=== PATIENT | female | born 1990 | race Caucasian/White ===

== ENCOUNTER → 2016-12-31 | Outpatient (CLI) | payer BC ==
[~2016-12-31] MED LIST: ANTICRE6; PAIN MEDS
[2016-12-31 16:19] LABS: URINE APPEARANCE CLEAR (CLEAR); URINE BILIRUBIN NEG (NEG); URINE COLOR YELLOW; URINE NITRITE NEG (NEG); URINE SPECIFIC GRAVITY 1.016 (1.000-1.030); UROBILINOGEN NEG (NEG)
[2016-12-31 16:20] LABS: MANUAL MICROSCOPIC REQUIRED? NO; REVIEW REQ? NO
== END | disposition home or self-care (01) ==
LOC: C.LABSPEC 15:35
PROVIDERS: ATTEND Obstetrics & Gynecology
DX: Z34.90 Encounter for supervision of normal pregnancy, unspecified, unspecified trimester (principal)

== ENCOUNTER → 2017-01-07 | Outpatient (CLI) | payer BC ==
[2017-01-10 02:01] LABS: CHLAMYDIA TRACH RNA*** NOT DETECTED (NOT DETECTED); GC (NEIS GONORRHOEAE)RNA** NOT DETECTED (NOT DETECTED)
== END | disposition home or self-care (01) ==
LOC: C.LABSPEC 17:25
PROVIDERS: ATTEND Obstetrics & Gynecology
DX: Z34.90 Encounter for supervision of normal pregnancy, unspecified, unspecified trimester (principal)

== ENCOUNTER → 2017-01-07 | Outpatient (CLI) | payer BC ==
[2017-01-07 16:38] LABS: BASO % 0.2 %; BASO ABS # 0.01 K/uL (0-0.2); COMPLETE YES; EOS % 1.4 %; HEMATOCRIT 34.7 % (37-47); IG% 0.2 %; LYMPH % 21.9 %; LYMPH ABS # 1.37 K/uL (1.2-3.4); MEAN CELL VOLUME 85.3 fL (80-100); MEAN CORPUSCULAR HEMOGLOBIN 29.5 pg (25-34); MEAN CORPUSCULAR HGB CONC 34.6 g/dl (32-36); MEAN PLATELET VOLUME 10.4 fL (7.4-10.4); MONO % 7.5 %; NEUT % 68.8 %; PLATELET COUNT 257 K/uL (130-400); RED BLOOD COUNT 4.07 M/uL (4.2-5.4); WHITE BLOOD COUNT 6.26 K/uL (4.8-10.8)
== END | disposition home or self-care (01) ==
LOC: C.LAB1850 15:39
PROVIDERS: ATTEND Obstetrics & Gynecology
DX: Z34.90 Encounter for supervision of normal pregnancy, unspecified, unspecified trimester (principal)

== ENCOUNTER → 2017-05-01 | Outpatient (CLI) | payer BC ==
[2017-05-01 12:19] LABS: URINE APPEARANCE CLEAR (CLEAR); URINE BILIRUBIN NEG (NEG); URINE COLOR YELLOW; URINE NITRITE NEG (NEG); URINE PH 7.5 (4.5-7.5); URINE SPECIFIC GRAVITY 1.013 (1.000-1.030); UROBILINOGEN NEG (NEG)
[2017-05-01 12:21] LABS: MANUAL MICROSCOPIC REQUIRED? NO; REVIEW REQ? NO
== END | disposition home or self-care (01) ==
LOC: C.LABSPEC 11:38
PROVIDERS: ATTEND Obstetrics & Gynecology
DX: O09.92 Supervision of high risk pregnancy, unspecified, second trimester (principal); Z3A.00 Weeks of gestation of pregnancy not specified

== ENCOUNTER → 2017-05-19 | Outpatient (CLI) | payer BC ==
[2017-05-19 12:22] LABS: HEMATOCRIT 30.6 % (37-47)
[2017-05-19 13:27] LABS: GTGD 50 Grams
== END | disposition home or self-care (01) ==
LOC: C.LAB1850 09:38
PROVIDERS: ATTEND Obstetrics & Gynecology
DX: O09.92 Supervision of high risk pregnancy, unspecified, second trimester (principal); Z3A.00 Weeks of gestation of pregnancy not specified

== ENCOUNTER → 2017-06-18 | Outpatient (CLI) | payer BC ==
[~2017-06-18] MED LIST changes: +PRENTAB26 PO
== END | disposition home or self-care (01) ==
LOC: C.LABSPEC 13:17
PROVIDERS: ATTEND Obstetrics & Gynecology
DX: O09.93 Supervision of high risk pregnancy, unspecified, third trimester (principal); Z3A.00 Weeks of gestation of pregnancy not specified

== ENCOUNTER 2017-06-28 19:08 | Outpatient (CLI) | payer BC ==
[~2017-06-28] VITALS: Ht 170.2 cm; Wt 86.5 kg
[~2017-06-28 19:08] MED LIST changes: -PRENTAB26 PO
[2017-06-28 19:53] VITALS: Ht 170.2 cm; Wt 86.5 kg
[2017-06-28] MEDS ORDERED: PRENTAB26 PO (19:54)
--- NOTE | 2017-07-02 09:26 | EDITING REQUIRED CODING QUERY ---
VALENCIA BULB Nursing notes indicate that a valencia bulb was attempted but unsuccessful on 06/28/17. Please provide a description of the attempted procedure for coding purposes: VALENCIA BULB ATTEMPT: A valencia bulb was placed through the cervix but immediately fell back out when insufflated. The balloon was removed and the patient was monitored prior to discharge home. Thank you for your assistance, Elizabeth Sahu - Wall Covering Contractor
== END 2017-06-28 21:35 | disposition home or self-care (01) ==
LOC: C.OPB 19:08 → C.LD 19:08 → C.OPB 21:35
PROVIDERS: ATTEND Obstetrics & Gynecology
DX: O36.0130 Maternal care for anti-D [Rh] antibodies, third trimester, not applicable or unspecified (principal); Z3A.37 37 weeks gestation of pregnancy

== ENCOUNTER 2017-06-29 07:43 | Inpatient (IN) | payer BC ==
[~2017-06-29] VITALS: Ht 170.2 cm; Wt 77.1 kg
[~2017-06-29 07:43] MED LIST changes: +PRENTAB26 PO
[2017-06-29] MEDS ORDERED: LACTATED RINGER'S 1000ML 500 ML IV PRN ×2 (07:49→14:14)
[2017-06-29] MEDS ORDERED: LACTATED RINGER'S 1000ML 1,000 ML IV PRN (07:49)
[2017-06-29] MEDS ORDERED: OXYTOCIN 30 UNITS/500ML NSS IV PRN ×2 (08:00→16:30)
[2017-06-29 08:30] LABS: HEMATOCRIT 29.1 % (37-47); HEMOGLOBIN 9.8 g/dL (12.0-16.0); MEAN CELL VOLUME 85.1 fL (80-100); MEAN CORPUSCULAR HEMOGLOBIN 28.7 pg (25-34); MEAN CORPUSCULAR HGB CONC 33.7 g/dl (32-36); MEAN PLATELET VOLUME 9.9 fL (7.4-10.4); PLATELET COUNT 270 K/uL (130-400); RED CELL DISTRIBUTION WIDTH CV 13.5 % (11.5-14.5); RED CELL DISTRIBUTION WIDTH SD 42.1 fL (36.4-46.3); WHITE BLOOD COUNT 8.94 K/uL (4.8-10.8)
[2017-06-29] MEDS: LACTATED RINGER'S 1000ML 1,000 ML IV SCH ×2 (08:46→14:22)
[2017-06-29 08:58] VITALS: Ht 170.2 cm; Wt 77.1 kg
--- NOTE | 2017-06-29 09:14 | Medical Student: [facility] ---
Med Student History & Physical Date of Service Jun 29, 2017. Chief Complaint Induction for Rh sensitization History of Present Illness Source: patient, spouse Laura Evans is a 27 yo white female with ELIEZER of 07/18/2017 as estimated by 13 week ultrasound on 01/12/2017, who is 37-2 gestation, who is admitted for induction for Rh sensitized, and has history of post- depression. 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 During this she has been [place] [facility] [place] Dopplers of the middle cerebral artery. Dopplers less than 1.5 MOM. She has had 2 previous induced vaginal deliveries at term with no negative sequelae. During her current she reports movement and small amount of mucus-like discharge that was slightly blood tinged after cervix exams on 2017 and 06/28/2017. NSTs reactive on 06/12, 06/18 and 06/24. She denies any significant contractions, leakage of fluid, AMA, GDM, PET, and anomalies. She reports influenza vaccine (04/07/2017), TDAP vaccine (05/01/2017), and rubella immune. She is GBS negative and had negative STI screening (VDRL/RPR immune, nonreactive treponemal, negative for HBsAg/HIV/chlamydia/gonorrhea). Her initial labs showed 34.7% HCT, 12.0 g/dl HGB, MCV of 85.3, and platelets if 257k. Her 24-28 week labs (05/19) showed HCT of 30.6%, 10.0g/dl HGB , and glucose of 128. She declined the QUAD screen. She traveled to [facility] from 04/15-04/26/2017 Allergies: latex (hives), catgut sutures (hives,"Vicryl is okay") OB History G1 was a spontaneous (10/2012). G2 was an induction for Rh sensitization with at 37-5 with epidural (female "Una", 09/25/2014). G3 was an induction for Rh sensitization with at 37-5 weeks (male "Jaun" 08/16). PLANT BREEDER History Menarche at 11 yo, with regular 28d menstrual periods with LMP x 10/22/2016, UTD on pap smears with no history of abnormal pap. Sexual history: onset at 20 yo, 1 lifetime male partner, no history of STIs. Denies history of obstetrics/gynecology nurse surgery or family history of obstetrics/gynecology nurse cancer. Reports annual healthy visits/screenings UTD. Past Medical History depression, which she reports taking sertraline 75mg daily with taper before third trimester of current . She was on 50mg daily, but increased to 75mg on 02/03/[address] Morocho. She wishes to start sertraline again after delivery (25mg script given to patient at 06/26/2016 out patient visit per Dr. Lechuga). History of blood transfusion at 11 yo secondary to surgery. History of chicken pox. Past Surgical History VATS with chest tube for pneumonia/empyema in 2002 Family History patient denies, all parents alive and well Social History no tobacco/alcohol/elicit drugs during current Smoking Status: Never Smoker Smokeless Tobacco Use: No Alcohol Use: none Drug Use: none Marital Status: Housing status: lives with family Occupational Status: other (homemaker) Allergies Coded Allergies: Latex1 -Allergic Contact Dermititis (Verified Allergy, Mild, Rash, 06/29/17) Uncoded Allergies: catgut sutures (Allergy, Severe, swelling and weston, 06/28/17) Home Medications Multivit/Min/Iron/Fol Ac/Pren ( Vitamin), 1 TAB PO DAILY Review of Systems Constitutional: No fever, No chills Eyes: No worsening of vision, No diplopia ENT: No hearing loss, No trouble swallowing Respiratory: No cough, No shortness of breath Cardiovascular: No chest pain, No edema, No palpitations Abdomen: + diarrhea, + problem reported (heartburn), No nausea, No vomiting, No constipation Musculoskeletal: + swelling (hands/feet), No calf pain Genitourinary - Female: + urinary frequency, + , No dysuria, No urinary incontinence, No hematuria, No rash, No vaginal bleeding Neurologic: No memory loss, No numbness/tingling Integumentary: No rash, No new/changing skin lesions Allergic / Immunologic: + food allergies, No hives Physical Exam General Appearance: WD/WN, no apparent distress Head: normocephalic, atraumatic Eyes: normal inspection, sclerae normal ENT: hearing grossly normal Neck: supple Respiratory/Chest: lungs clear, normal breath sounds Cardiovascular: regular rate, rhythm, no edema Abdomen / GI: + pertinent finding (gravid, fundal height: term, +FHTs, vertex, no palpable contractions, EFW 7lbs ) Genitourinary - Female: + pertinent finding (dilation: 2-3cm, effacement: 50, station: -2/3) Back: no muscle spasm, normal range of motion Extremities: no calf tenderness (no deep calf tenderness), no pedal edema, normal range of motion, non-tender Neurologic/Psych: alert, normal mood/affect, normal reflexes (2+ deep tendon reflexes) Skin: normal color, no rash Lymphatic: no adenopathy Laboratory Results 06/29/17 08:10 Test 06/29/17 08:10 Red Blood Count 3.42 M/uL (4.2-5.4) Mean Corpuscular Volume 85.1 fL (80-100) Mean Corpuscular Hemoglobin 28.7 pg (25-34) Mean Corpuscular Hemoglobin Concent 33.7 g/dl (32-36) RDW Standard Deviation 42.1 fL (36.4-46.3) RDW Coefficient of Variation 13.5 % (11.5-14.5) Mean Platelet Volume 9.9 fL (7.4-10.4) Assessment and Plan Laura Evans is a 27 yo white female admitted to L&D for an induction of labor at 37-2 weeks gestation for her history of Rh sensitization. Plan: 1) monitoring - Monitor heart rate 2) Start pitocin and rupture membranes - Rate of 1ml/min increase by 2 every 30 minutes, until patient having contractions every 2-3 minutes that last 60-90 seconds. 3) Plan for repeat vaginal delivery with epidural (when requested by patient).
[2017-06-29] MEDS ORDERED: BUPIVACAINE 0.25% 30 ML VIAL ONE (14:14)
[2017-06-29] MEDS ORDERED: NALOXONE HCL INJ 1 MG in SODIUM CHLORIDE 0.9% 1000ML 1,000 ML IV PRN (14:14)
[2017-06-29] MEDS ORDERED: NALOXONE HCL INJ 0.4 MG/1 ML VIAL/CARP IV PRN (14:15)
[2017-06-29] MEDS ORDERED: EpHEDrine SULFATE INJ 50 MG/ML AMP IV PRN (14:15)
[2017-06-29] MEDS ORDERED: FENTANYL 2MCG/ML ROPIV 1.25MG/ML 100ML BAG EPI PRN (14:15)
[2017-06-29] MEDS ORDERED: ONDANSETRON INJ 2 MG/ML 2 ML VIAL IV PRN (14:15)
[2017-06-29] MEDS ORDERED: EpHEDrine SULFATE INJ 50 MG/ML AMP ONE (14:15)
[2017-06-29] MEDS ORDERED: DiphenhydrAMINE HCL 50 MG/ML VIAL IV PRN (14:15)
[2017-06-29] MEDS ORDERED: METOCLOPRAMIDE HCL INJ 20 MG in SODIUM CHLORIDE 0.9% 50ML 50 ML IV PRN (14:15)
[2017-06-29] MEDS ORDERED: FENTANYL 2MCG/ML ROPIV 1.25MG/ML 100ML BAG EPI ONE (14:15)
[2017-06-29] MEDS ORDERED: PROMETHAZINE HCL INJ 25 MG in SODIUM CHLORIDE 0.9% 50ML 50 ML IV PRN (14:15)
[2017-06-29] MEDS ORDERED: NALBUPHINE HCL INJ 10 MG/ML AMP IV PRN (14:15)
[2017-06-29] MEDS ORDERED: FENTANYL CITRATE INJ 50 MCG/1 ML 2 ML VIAL ONE (14:16)
[2017-06-29] MEDS ORDERED: SUPERCREAM 0.870 % 15GM JAR EXT PRN (16:30)
[2017-06-29] MEDS ORDERED: ACETAMINOPHEN/CODEINE 300/30MG TAB PO PRN ×2 (16:30)
[2017-06-29] MEDS ORDERED: BENZOCAINE 20% AER SPR 82.5 GM CAN EXT PRN (16:30)
[2017-06-29] MEDS ORDERED: ACETAMINOPHEN 325 MG TAB PO PRN (16:30)
[2017-06-29] MEDS ORDERED: HYDROCORTISONE ACETATE 25 MG SUPP PR PRN (16:30)
[2017-06-29] MEDS ORDERED: LANOLIN OINT EXT PRN (16:30)
--- NOTE | 2017-06-29 16:36 | Medical Student: [facility] ---
Medical Student Delivery Note Юлия Evans with Rh sensitization had a normal spontaneous vaginal delivery, after pitocin induction and manual ROM, of female infant in the ROSALIA position over intact perineum with total of 14cc epidural anesthesia. No meconium stained fluid or nuchal cord noted. Spontaneous delivery of placenta with 3-vessel cord. No laceration, only few (2-3) small brush melo, which did not require any sutures of posterior vaginal wall. Normal amount of blood loss (~300cc). Cord blood specimen and cord blood gas sent to laboratory for mother's history of Rh sensitization and baby's Rh+ status.
[2017-06-29] MEDS: IBUPROFEN 600 MG TAB PO PRN ×2 (16:58→20:33)
[2017-06-29] MEDS ORDERED: SERTRALINE HCL 50 MG TAB PO ONE (17:30)
--- NOTE | 2017-06-29 18:19 | Anesthesia Procedure Note ---
Anesthesia Epidural Removal Nt Date & Time Jun 29, 2017 at 18:19 Vital Signs Pain Intensity: 2.0 Notes Mental Status: alert / awake / arousable, participated in evaluation Nausea / Vomiting: adequately controlled Pain: adequately controlled Airway Patency, RR, SpO2: stable & adequate BP & HR: stable & adequate Hydration State: stable & adequate Neuraxial Anesthesia: was administered, sensory block is resolving Anesthetic Complications: no major complications apparent, pt satisfied with anesthetic care Epidural: removed without complications, with tip intact
[2017-06-29 19:15] VITALS: BP 115/69; PULSE 97; TEMP 36.4
--- NOTE | 2017-06-29 22:36 | DELIVERY SUMMARY ---
DATE OF OPERATION: 06/29/2017 FINDINGS: Viable female with Apgars of 8 and 9. Baby delivered spontaneously over intact perineum. Cord gases, cord blood samples obtained. Placenta delivered spontaneously. Inspection of the perineum showed no lacerations. Estimated blood loss was 300 mL. LABOR NOTE: The patient is a 27-year-old 4, para 2, with an EDC of 07/18/2017 by first trimester ultrasound at 37+ weeks gestational age, who was admitted for induction for isoimmunization, anti D. 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 She has been followed at [facility] with weekly MCA Dopplers in the third trimester. There was a mild elevation in the third trimester but not indicative of a severe anemia. The patient had cell-free DNA testing which indicated the baby is Rh positive. The patient has been followed with biweekly NSTs that have been reassuring. Laboratory values for the showed blood type of A negative, antibody positive for anti D and anti C, rubella immune, hepatitis B negative. She declined a quad screen. She had a normal 1 hour Glucola at 28 weeks and a negative third trimester beta strep culture. Upon admission, the patient was 2 to 3 cm dilated, 50% effaced and -2 station. Pitocin was initiated per induction protocol, artificial rupture of membranes for clear fluid. Over the next 6 hours, the patient began to contract in a regular fashion and became uncomfortable. Anesthesia was consulted and an epidural was placed. Following placement of the epidural, the patient progressed to full dilatation and began her second stage. She pushed for approximately 5 minutes, delivering a viable female . Cord was clamped and cut. Cord gases, cord blood samples obtained. Placenta was delivered spontaneously. Inspection of the perineum showed an intact perineum with no lacerations. Estimated blood loss 300 mL. Sponge and needle count was correct. I attest to the content of the Intraoperative Record and any orders documented therein. Any exception s are noted below.
[2017-06-29 23:51] VITALS: BP 114/72; PULSE 81; TEMP 36.7
[2017-06-30] MEDS: IBUPROFEN 600 MG TAB PO PRN ×4 (02:23→21:25)
[2017-06-30 04:01] VITALS: BP 123/74; PULSE 93; TEMP 36.9
--- NOTE | 2017-06-30 06:12 | Discharge Instructions ---
Discharge Instructions Date of Service Jun 30, 2017. Admission Reason for Admission: Induction Discharge Discharge Diagnosis / Problem: vaginal delivery Discharge Goals Goal(s): Routine recovery after delivery Medications Continue Dispensed Medications: supercream, dermaplast, tucks Activity Recommendations Activity Limitations: per Instructions/Follow-up section . Instructions / Follow-Up Instructions / Follow-Up ACTIVITY RECOMMENDATIONS: * Gradual return to full activity over the next 2-3 weeks. * No lifting - nothing heavier than baby over the next 2-3 weeks. * Do not engage in vigorous exercise, sexual activity or sports until cleared by your physician. * Do not drive or operate any motorized equipment until cleared by your physician. * You may shower/bathe daily. MEDICATIONS: For discomfort or pain, you may use Acetaminophen (Tylenol), Ibuprofen (Advil), or Naproxen (Aleve) following the package directions. For constipation you may use Colace following the package directions. BREAST CARE: If you are not breast feeding: * Wear a supportive bra 24 hours a day for one to two weeks. * Avoid stimulating your breasts and nipples as much as possible during the first few weeks after delivery. * When taking a shower, have the warm water hit your back, not breasts. * When your breasts feel full, apply ice packs. Usually three to four times a day helps ease the discomfort. * Take a mild pain medication (Tylenol / Motrin) when you are uncomfortable. If breast feeding: * Use breast milk to lubricate nipples. Lansinoh cream may be used for sore nipples. You do not need to remove cream prior to breast feeding. If using a different brand of cream, check the label for directions regarding removal of cream prior to nursing. * Wear a supportive bra. * If having problems with breasts or breast feeding, call a sql consultant or your health care provider. EPISIOTOMY CARE: After delivery, if you have an episiotomy (stitches), the following steps will ease discomfort and aid healing. * For the first 24 hours after delivery, place ice packs next to your episiotomy to help reduce swelling. * After the first 24 hour-period, sitz baths, either portable or in the tub, are suggested. A shower with a shower arm sprayed over the episiotomy may be comforting. * Yessica care should be done after each voiding and bowel movement. Squirt warm water from a plastic bottle over the perineum (region of the body between the anus and urinary opening) and pat dry. * Use Dermoplast to ease discomfort. Shake container. [place] directly over the episiotomy. Place a Tucks on a clean sanitary pad next to your episiotomy. SPECIAL CARE INSTRUCTIONS: When you are discharged from the hospital, it is important for you to follow the instructions listed below: * During the first week at home, you should be able to care for yourself and your baby. In addition, the usual light household activities are encouraged. * Limit your activities to the way you feel. Do not try to clean the house or move furniture. Be sensible. * If you actively engage in sports and have done so up until the time of your delivery, you may resume these activities as soon as you feel able. This may take up to one month or even longer. Use good judgment. * Continue to take your vitamins for at least six weeks after the of your baby. * Your diet need not be limited unless you were on a special diet before your delivery. Breast-feeding mothers need around 2500 calories per day and at least 64-80 ounces of fluid per day (8 to 10 glasses). * You should eat foods from the four major food groups. Crash diets or fad diets are to be avoided. Eating lean meats, fresh fruits and vegetables, low-fat dairy products, high fiber foods and a regular exercise program, will help you get back to your pre- weight without putting your health at risk. * Constipation is sometimes a problem after delivery. Take a mild laxative as needed. If breast feeding, Milk of Magnesia is acceptable to use. You may use a suppository or Fleets enema if no episiotomy. * A daily shower or tub bath is suggested. Be sure to thoroughly and gently dry the perineum. * A bloody vaginal discharge will usually continue until around four weeks post . A small amount of bleeding may continue for as long as six weeks. Vaginal discharge changes from the bright red bleeding after delivery to pink then brownish and finally yellowish-pink before becoming white and disappearing. * Bleeding may increase with activity. Your first period may come in 4-8 weeks. If you are breast feeding, your period may be delayed even longer. * [place] (sex) can begin whenever both you and your partner feel comfortable and do not have any form of genital infection. It is recommended that you wait at least six weeks for internal and external healing to occur. If you have questions, please talk to your health care practitioner. A condom should be used to prevent infection and . * Foreplay, gentle intercourse and lubrication is very important the first several times to prevent pain. A water-based lubricant such as K-Y jelly or Astroglide may be used. * If you have RH negative blood and your baby is RH positive, you will receive RHOGAM by injection prior to discharge. The nurse will give you a card to keep with you that has the date and place that you received RHOGAM after delivery. * During your care, you had a Rubella screen done to check for the presence of rubella antibodies in your blood. If your test was negative, you will receive a Rubella vaccine prior to discharge. This vaccine may cause a fever, soreness at the injection site and flu-like symptoms. If these symptoms persist, notify your health care practitioner. is not advised for one month after a Rubella vaccine. * Verbalizes understanding of car seat law as reviewed with patient nursing. * Car Seat hand-out given and reviewed with patient by nursing. * Shaken baby information reviewed with patient by nursing. Call you doctor if: * Heavy bleeding (saturating several pads an hour) or passing clots the size of your fist. * A fever >101 degrees F (38.3 degrees C) on two occasions four hours apart and /or chills. * Unusual pain in the pelvic or vaginal areas. * "Baby Blues" lasting longer than two weeks. If you have any questions or concerns, call your health care practitioner at . FOLLOW UP VISIT: * Please call the office at to schedule a 6 week examination. It is important you keep this appointment. It is important for you to make arrangements for either yearly or twice yearly check-ups thereafter. Current Hospital Diet Patient's current hospital diet: Regular OB Diet Discharge Diet Recommended Diet: Regular OB Diet Pending Studies Studies pending at discharge: no Medical Emergencies . Who to Call and When: Medical Emergencies: If at any time you feel your situation is an emergency, please call 911 immediately. . Non-Emergent Contact Non-Emergency issues call your: Inspector Penetrant . . "Provider Documentation" section prepared by Stephon Heard. . VTE Core Measure Inpt VTE Proph given/why not?: Treatment not indicated
--- NOTE | 2017-06-30 06:21 | OB/GYN Progress Note ---
CONSTRUCTION REP Progress Note Date of Service Jun 30, 2017. Subjective conversation w/ patient, physical exam, chart review, lab review Ambulation: ambulating normally Voiding: no voiding problems Passing Gas: Yes Diet Tolerance: Regular Diet Lochia: Moderate Feeding Type: Breast Feeding Pain: well controlled Review of Systems Constitutional: No fever, No chills Respiratory: No cough, No shortness of breath Cardiac: No chest pain, No palpitations Abdomen: No pain, No nausea, No vomiting Female : No dysuria Objective Vital Signs Date Time Temp Pulse Resp B/P (MAP) Pulse Ox O2 Delivery O2 Flow Rate FiO2 06/30/17 04:01 36.9 93 16 123/74 (90) Room Air 06/29/17 23:53 Room Air 06/29/17 23:51 36.7 81 18 114/72 (86) Room Air 06/29/17 19:15 Room Air 06/29/17 19:15 36.4 97 20 115/69 (84) Room Air Physical Exam General Appearance: WELL-APPEARING, WD/WN, NO APPARENT DISTRESS Respiratory/Chest: lungs clear, normal breath sounds Cardiovascular: regular rate, rhythm, no murmur Abdomen: soft, no organomegaly Fundus: Firm Extremities: normal inspection, no pedal edema, no calf tenderness Laboratory Results Last 24 Hours Test 06/29/17 08:10 06/30/17 06:10 White Blood Count 8.94 K/uL Red Blood Count 3.42 M/uL Hemoglobin 9.8 g/dL Hematocrit 29.1 % Mean Corpuscular Volume 85.1 fL Mean Corpuscular Hemoglobin 28.7 pg Mean Corpuscular Hemoglobin Concent 33.7 g/dl RDW Standard Deviation 42.1 fL RDW Coefficient of Variation 13.5 % Platelet Count 270 K/uL Mean Platelet Volume 9.9 fL Assessment and Plan Post- Day Number: 1 Continue Routine Care: 27 f now 3 PPD1, GBS-/A-/RI. Vitals reviewed, WNL. Hgb 9.8 at admission, pending today. No signs or sx of anemia. Plan; 1. Post depression-patient has a PMH with previous pregnancies. Continue Sertraline 25mg daily. Follow up with patients mood. 2. Recovery from vaginal delivery- Continue pp care; ambulate, control pain, monitor lochia, support Resident Physician Supervision Note: I interviewed and examined the patient. Discussed with Dr. Heard and agree with findings and plan as documented in the note. Any exceptions or clarifications are listed here: Baby under the bili lights Documented By: Julio Cesar Lechuga
[2017-06-30 06:50] LABS: HEMATOCRIT 28.1 % (37-47); HEMOGLOBIN 9.4 g/dL (12.0-16.0)
--- NOTE | 2017-06-30 06:59 | Medical Student: [facility] ---
Med Student [employer] Progress Nt Date of Service Jun 30, 2017. Subjective conversation w/ patient Ambulation: ambulating normally Voiding: no voiding problems Passing Gas: Yes Diet Tolerance: Regular Diet Lochia: Moderate Feeding Type: Breast Feeding Pain: well controlled on motrin Notes: Laura Evans, who is isoimmunized (anti-C and anti-D antibodies), is a 27 yo female now 3 who had a vaginal delivery on 06/29/2017 at 1606. She is day 1. She is GBS negative, blood type A-, rubella immune. Her baby is A+ and C antigen +. Today patient states she is doing well, with only slight lower abdominal pain which is well controlled on Motrin. She is eating a normal diet. She has voided and passed gas, but has not had a bowel movement since delivery. She describes her lochia as moderate, where she changes her pad every few hours when she voids, but the pad is not soaked through. She is breast feeding, which is going well. She also notes some slight swelling in her hands and feet. She reports taking her 25mg sertraline last night, and notes her mood has been good. She denies nausea, vomiting, diarrhea, chest pain , shortness of breath, calf tenderness. Review of Systems Constitutional: + problem reported (slight swelling in hands/feet), No fever Respiratory: No shortness of breath Cardiac: No chest pain Abdomen: + pain (controlled on motrin), No nausea, No vomiting, No diarrhea Female : + problem reported (moderate lochia (pad change every few hours)), No dysuria, No incontinence Objective Vital Signs Date Time Temp Pulse Resp B/P (MAP) Pulse Ox O2 Delivery O2 Flow Rate FiO2 06/30/17 04:01 36.9 93 16 123/74 (90) Room Air 06/29/17 23:53 Room Air 06/29/17 23:51 36.7 81 18 114/72 (86) Room Air 06/29/17 19:15 Room Air 06/29/17 19:15 36.4 97 20 115/69 (84) Room Air Physical Exam General Appearance: WELL-APPEARING, WD/WN, NO APPARENT DISTRESS Respiratory/Chest: normal breath sounds Cardiovascular: regular rate, rhythm Abdomen: non tender, soft, + pertinent finding (uterus palpated just under umbilicus ) Extremities: normal range of motion, non-tender, no calf tenderness Laboratory Results Last 24 Hours Test 06/29/17 08:10 06/30/17 06:10 White Blood Count 8.94 K/uL Red Blood Count 3.42 M/uL Hemoglobin 9.8 g/dL Hematocrit 29.1 % Mean Corpuscular Volume 85.1 fL Mean Corpuscular Hemoglobin 28.7 pg Mean Corpuscular Hemoglobin Concent 33.7 g/dl RDW Standard Deviation 42.1 fL RDW Coefficient of Variation 13.5 % Platelet Count 270 K/uL Mean Platelet Volume 9.9 fL Assessment and Plan Post- Day Number: 1 Continue Routine Care: Laura Evans is a 27 yo female with PMHx of isoimmunization (anti-C and anti-D) who is now 3, day 1 and doing well. Her vital signs are stable. Her Hgb was 9.8 yesterday with today's Hgb pending. Plan: 1) Continue care of encouraging ambulation, breast feeding support, and pain control 2) Plan to discharge tomorrow. 3) Monitor for depression, with history after 2 previous births. Continue taking 25mg sertraline. Patient confirms she has a prescription for 25mg to take after discharge.
[2017-06-30 07:59] VITALS: BP 116/76; PULSE 84; TEMP 36.6
[2017-06-30] MEDS: SERTRALINE HCL 50 MG TAB PO SCH (08:31)
[2017-06-30] MEDS: PRENATAL VITAMIN TAB PO SCH (08:31)
[2017-06-30] MEDS: FERROUS SULFATE 325 MG TAB PO SCH (08:31)
[2017-06-30 11:30] VITALS: BP 124/76; PULSE 83; TEMP 36.7
[2017-06-30 15:54] VITALS: BP 119/76; PULSE 80; TEMP 36.6
[2017-06-30 23:25] VITALS: BP 117/75; PULSE 74; TEMP 36.9
--- NOTE | 2017-07-01 06:33 | Progress Note ---
Subjective Jul 01, 2017. Subjective conversation w/ patient, physical exam Ambulation: ambulating normally Voiding: no voiding problems Diet Tolerance: Regular Diet Lochia: Small Feeding Type: Breast Feeding Pain: denies Objective Vital Signs Date Time Temp Pulse Resp B/P (MAP) Pulse Ox O2 Delivery O2 Flow Rate FiO2 06/30/17 23:25 36.9 74 18 117/75 (89) Room Air 06/30/17 23:25 Room Air 06/30/17 16:50 Room Air 06/30/17 15:54 36.6 80 18 119/76 (90) Room Air 06/30/17 11:30 36.7 83 18 124/76 (92) Room Air 06/30/17 09:35 Room Air 06/30/17 07:59 36.6 84 20 116/76 (89) Room Air Physical Exam General Appearance: WELL-APPEARING, WD/WN, NO APPARENT DISTRESS Respiratory/Chest: lungs clear Cardiovascular: regular rate, rhythm Abdomen: non tender, soft Fundus: Firm, Relation to Umbilicus (2 down) Extremities: non-tender Assessment and Plan Post- Day#: 2 Continue Routine Care: stable, routine care. ready for d/c home. f/u 6 wks pp check. instructions reviewed. plans to cont on her zoloft with h/o pp depression. already has script.
[2017-07-01] MEDS ORDERED: BISACODYL 10 MG SUPP PR PRN (07:00)
[2017-07-01] MEDS: SERTRALINE HCL 50 MG TAB PO SCH (07:49)
[2017-07-01] MEDS: FERROUS SULFATE 325 MG TAB PO SCH (07:49)
[2017-07-01] MEDS: PRENATAL VITAMIN TAB PO SCH (07:49)
[2017-07-01 07:55] VITALS: BP 118/77; PULSE 86; TEMP 36.7
[2017-07-01 16:16] VITALS: BP_DIAS 77; PULSE 86; TEMP 36.7
== END 2017-07-01 16:18 | disposition home or self-care (01) | DRG 775 ==
LOC: C.LD 07:43 → C.OBG 18:55
PROVIDERS: ADMIT Obstetrics & Gynecology; ATTEND Obstetrics & Gynecology
PROC: 10E0XZZ Delivery of Products of Conception, External Approach (ICD-10-PCS; principal; 2017-06-29)
DX: O80 Encounter for full-term uncomplicated delivery (principal); Z37.0 Single live birth; Z3A.37 37 weeks gestation of pregnancy

== ENCOUNTER → 2017-09-15 | Outpatient (CLI) | payer BC ==
[~2017-09-15] MED LIST changes: -ANTICRE6; -PAIN MEDS
== END | disposition home or self-care (01) ==
LOC: C.LAB1850 16:24
PROVIDERS: ATTEND Family Medicine
DX: Z39.2 Encounter for routine postpartum follow-up (principal)

== ENCOUNTER 2018-09-30 07:34 | Inpatient (IN) ==
[2018-09-30] MEDS ORDERED: LACTATED RINGER'S 1,000 ML IV PRN ×2 (07:52→07:56)
[2018-09-30] MEDS ORDERED: OXYTOCIN 30 UNITS/500 ML BAG IV PRN ×3 (07:52→16:58)
[2018-09-30 08:16] LABS: Hematocrit (blood only) 33.2 % (37-47); Hemoglobin 11.2 g/dL (12.0-16.0); Mean Corpuscular Volume 86.9 fL (80-100); Platelet Count 274 K/uL (130-400); RDW Coefficient of Variation 12.9 % (11.5-14.5); Red Blood Count 3.82 M/uL (4.2-5.4); White Blood Count 8.55 K/uL (4.8-10.8)
[2018-09-30] MEDS: LACTATED RINGER'S 1,000 ML IV SCH ×2 (08:30→16:09)
--- NOTE | 2018-09-30 08:31 | History & Physical Report ---
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 pitocin induction anticipate vaginal . History of Present Illness Primary Care Provider: NO PCP Patient is a 28 yo white female EDC 10/15/18 who presents at 37 weeks for IOL because of alloimmunization with D. Titers have remained low during the . MCA's have also been normal. Although they were not done on a regular basis. Patient reports good movement. no contractions. GBS(-) aos complicated by depression for which she takes zoloft. A(-)/Rubella(-)/HIV(-)/RPR-NR/HepB(-)/chlam-GC(-) Allergies Allergy/AdvReac Type Severity Reaction Status Date / Time latex Allergy Mild Rash Verified 06/30/17 16:47 catgut sutures Allergy Severe swelling Uncoded 06/28/17 19:53 and weston Home Medications Home Medications Medication Instructions Recorded Confirmed Type vit no.[id number] 1 tab PO DAILY 09/30/18 09/30/18 History [ Vitamin] sertraline 75 mg PO DAILY 09/30/18 09/30/18 History Patient History Medical History Rh sensitized Surgical History H/O chest tube placement Social History Preferred Language: Nigerien Communication Ability: Effective Beliefs That Will Affect Care: Judaism marital status: Current Living Situation: Spouse and Family Current Living Situation Comment: Freinds and family Other Information That Helps Us Care for You: No Feels Safe at Home: Yes Smoking Status: Never smoker Hx Alcohol Use: No Hx Substance Use: No Review of Systems All systems reviewed & are unremarkable except as noted in HPI & below Physical Exam Vital Signs (Past 24 Hours): Last Vital Signs Temp 36.8 C 09/30/18 08:00 Pulse 83 09/30/18 08:01 Resp 18 09/30/18 08:00 BP 116/64 09/30/18 08:01 Constitutional: WD/WN, vitals as above Gastrointestinal (Abdomen): normal bowel sounds, soft, nontender, no hepatosplenomegaly Genitourinary: OB Exam Abdomen: + vertex and + estimated weight (6-7 pounds) Manual OB Exam: + cervical dilation 2 cm, + cervical effacement 70% and + station -2 OB Exam Monitor Tracing: + external FHT monitor used, + external uterine monitor used, + category I and + normal FHT variability
[2018-09-30 08:32] LABS: Mean Corpuscular Hgb Conc 33.7 g/dL (32-36)
[2018-09-30] MEDS: SERTRALINE HCL 50 MG TABLET PO SCH (11:32)
--- NOTE | 2018-09-30 13:02 | Obstetrical Progress Note ---
Date of Service September 30, 2018 Subjective Comfortable. Rates ctx "4." FHT Cat 1 [place] Q 2 SVE /-1 AROM performed, clear fluid. Anticipate . Physical Exam Vital Signs (Past 24 Hours): Last Vital Signs Temp 37.0 C 09/30/18 11:49 Pulse 89 09/30/18 12:50 Resp 20 09/30/18 12:50 BP 128/70 09/30/18 12:50
[2018-09-30] MEDS ORDERED: ePHEDrine sulfate 50 MG/ML AMP ONE (16:32)
[2018-09-30] MEDS ORDERED: fentaNYL citrate 100 MCG/2 ML VIAL ONE (16:32)
[2018-09-30] MEDS ORDERED: BUPIVACAINE 0.25% 30 ML VIAL ONE (16:32)
[2018-09-30] MEDS ORDERED: fentaNYL 2MCG/ML ROPIV 1.25MG/ML 100 ML BAG EPI ONE (16:33)
[2018-09-30] MEDS ORDERED: ONDANSETRON INJ 2 MG/ML 2 ML VIAL ONE (16:35)
[2018-09-30] MEDS ORDERED: BENZOCAINE 20% AER SPR 82.5 GM CAN EXT PRN (16:58)
[2018-09-30] MEDS ORDERED: DIPHTHERIA/TETANUS/PERTUSSIS 0.5 ML SYR/VIAL IM ONE (16:58)
[2018-09-30] MEDS ORDERED: SUPERCREAM 0.870% 15 GM JAR EXT PRN (16:58)
[2018-09-30] MEDS ORDERED: ACETAMINOPHEN 325 MG TAB PO PRN (16:58)
[2018-09-30] MEDS ORDERED: HYDROCORTISONE ACETATE 25 MG SUPP PR PRN (16:58)
[2018-09-30] MEDS ORDERED: OXYCODONE/ACETAMINOPHEN 5mg/325mg TAB PO PRN (16:58)
[2018-09-30] MEDS: IBUPROFEN 600 MG TAB PO PRN (17:18)
--- NOTE | 2018-09-30 18:25 | Procedure Note ---
Vaginal Delivery Summary Date of Service September 30, 2018 Vaginal Delivery Summary Predelivery diagnoses: 28yo @ 37 6/7, IOL due to Rh sensitization and recommendation from MFM, depression, noncompliance with 2hr glucola Postdelivery diagnoses: same Procedure: spontaneous vaginal delivery Surgeon: Dr Jara EBL: 300ml Findings: Viable female , apgars 9/9. Nuchal x 2. No lacerations. For weight, please see nursery records. Complications: none Description of delivery: Patient progressed to complete, and had hoped for epidural, but progressed too quickly. She spontaneously vaginally delivered a viable female in cephalic presentation over an intact perineum. The head delivered in ROSALIA position, nuchal x 2 was easily reduced, then anterior and posterior shoulders were delivered followed by the body. The cord was doubly clamped and cut and the baby was handed off per mother's request to the waiting nursery team. A spontaneous cry was heard. The placenta was delivered spontaneously intact with a 3 vessel cord. Pitocin was given, uterus became firm. The uterus/vagina were cleared of all clots and debris. The cervix, vagina, perineum were inspected and found to have no lacerations. Excellent hemostasis was observed. Sponge/instrument counts were correct x 2 at the conclusion of delivery. Mother and baby recovered in stable and good condition in the room.
[2018-09-30] MEDS: DOCUSATE SODIUM 100 MG CAP PO SCH (21:45)
[2018-10-01] MEDS: IBUPROFEN 600 MG TAB PO PRN ×6 (00:07→20:32)
[2018-10-01 06:22] LABS: Hemoglobin 10.8 g/dL (12.0-16.0)
[2018-10-01] MEDS: SERTRALINE HCL 50 MG TABLET PO SCH (06:34)
--- NOTE | 2018-10-01 07:01 | Obstetrical Progress Note ---
Date of Service <Sae Beauchamp DO - Last Filed: 10/01/18 07:33> October 01, 2018 Assessment & Plan <Sae DO Nito - Last Filed: 10/01/18 07:33> (1) Spontaneous vaginal delivery: 28 y/o , IOL for alloummunization w/D at 37.6 weeks, with , A-, GBS- - continue routine post- care - patient states she does not get Rhogam for Rh status - okay for discharge home today if baby is discharged home. 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 She denies chest pain, shortness of breath, fever, chills, headache, nausea, vomiting. She states she is ready for discharge home today if her baby is able to be discharged. Physical Exam <Sae Beauchamp DO - Last Filed: 10/01/18 07:33> Vital Signs (Past 24 Hours) Last Vital Signs Temp 36.8 C 10/01/18 04:00 Pulse 80 10/01/18 04:00 Resp 18 10/01/18 04:00 BP 117/72 10/01/18 04:00 Constitutional WD/WN, vitals as above cooperative and comfortable Eyes + anicteric sclerae and EOM intact bilaterally Neck normal visual inspection and trachea midline Respiratory normal respiratory effort, lungs clear to auscultation Cardiovascular Rate/Rhythm: regular rate and regular rhythm Heart Sounds: no murmur Gastrointestinal (Abdomen) uterine fundus is firm, non-tender, 2-cm inferior to umbilicus Musculoskeletal Head/Neck/Chest: normocephalic and head atraumatic Skin no rashes, warm and dry Neurologic moves all extremities and awake Psychiatric A+Ox3, euthymic affect Results & Data <Sae Beauchamp DO - Last Filed: 10/01/18 07:33> Laboratory Results Laboratory Results - last 24 hr 09/30/18 09/30/18 10/01/18 08:02 09:31 06:00 WBC 8.55 RBC 3.82 L Hgb 11.2 L 10.8 L Hct 33.2 L 33.0 L MCV 86.9 MCH 29.3 MCHC 33.7 RDW Std Deviation 41.0 RDW Coeff of Taylor 12.9 Plt Count 274 MPV 10.0 POC Glucose 90 Medications Administered Docusate Sodium (Colace) 100 mg PO BID [facility] Stop: 10/30/18 20:59 Last Admin: 09/30/18 21:45 Dose: Not Given Documented by: [id number] Ibuprofen (Motrin) 600 mg PO Q4H PRN PRN Reason: Pain/KERN/Cramping/Fever Stop: 10/30/18 16:57 Last Admin: 10/01/18 04:07 Dose: 600 mg Documented by: [id number] Admin: 10/01/18 00:07 Dose: 600 mg Documented by: [id number] Admin: 09/30/18 17:18 Dose: 600 mg Documented by: [id number] Sertraline HCl (Zoloft) 75 mg PO DAILY [facility] Stop: 10/30/18 08:59 Last Admin: 10/01/18 06:34 Dose: 75 mg Documented by: [id number] Admin: 09/30/18 11:32 Dose: Not Given Documented by: [id number] <Katarzyna Jara, - Last Filed: 10/01/18 07:29> Co-Signing Physician Notes I have seen/examined patient. I have read above note performed by resident and I agree with above. Any changes/additions are as follows: PPD#1 doing well. If possible, would like to be discharged home today. Rh alloimmunization. Katarzyna Jara DO [facility]
[2018-10-01] MEDS: PRENATAL VITAMIN 1 TAB PO SCH (08:08)
[2018-10-01] MEDS: DOCUSATE SODIUM 100 MG CAP PO SCH ×2 (08:08→20:32)
--- NOTE | 2018-10-01 17:03 | Communication Note ---
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 Patient would benefit from Rhogam if Anti- G. Patient was not given Rhogam as with Anti-D would not benefit. However, after discussion with Dr. Sánchez, Attending, the benefits of preventing alloimmunzation if Anti-G would outweight any risks of giving Rhogam if indeed Anti-D. Thus, will give Rhogam if she still wants more children/future would help decrease risk for future hydrops fetalis. Agree with above Keith Sánchez
[2018-10-01] MEDS ORDERED: BISACODYL 5 MG TABEC PO SCH (20:00)
[2018-10-02] MEDS: IBUPROFEN 600 MG TAB PO PRN ×2 (02:01→08:45)
[2018-10-02] MEDS ORDERED: BISACODYL 10 MG SUPP PR PRN (06:00)
--- NOTE | 2018-10-02 07:10 | Obstetrical Progress Note ---
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 Patient would benefit from Rhogam if Anti-G. Patient was not given Rhogam as with Anti-D would not benefit. However, after discussion with Dr. Sánchez, Attending, the benefits of preventing alloimmunzation if Anti-G would outweigh any risks of giving Rhogam if indeed Anti-D. Thus, will give Rhogam as if she still would want more children/future would help decrease risk for future hydrops fetalis. Subjective <Sae Beauchamp - Last Filed: 10/02/18 07:10> Ambulation: ambulating normally Voiding: no voiding problems Passing Gas:: Yes Diet Tolerance:: regular diet Lochia:: Small Feeding Type:: breast feeding Laura states she is doing well today, no acute events overnight. She denies fever, chills, chest pains, shortness of breath, nausea, vomiting. Physical Exam <Sae Beauchamp - Last Filed: 10/02/18 07:10> Vital Signs (Past 24 Hours) Last Vital Signs Temp 36.8 C 10/01/18 23:45 Pulse 61 10/01/18 23:45 Resp 18 10/01/18 23:45 BP 112/72 10/01/18 23:45 Pulse Ox 98 10/01/18 20:26 Constitutional WD/WN, vitals as above cooperative and comfortable Eyes + anicteric sclerae and EOM intact bilaterally Neck normal visual inspection and trachea midline Respiratory normal respiratory effort, lungs clear to auscultation Cardiovascular Rate/Rhythm: regular rate and regular rhythm Heart Sounds: no murmur Gastrointestinal (Abdomen) Percussion/Palpation: abdomen nontender uterine fundus is firm, non-tender, 3cm inferior to umbilicus Musculoskeletal Head/Neck/Chest: normocephalic and head atraumatic Skin no rashes, warm and dry Neurologic moves all extremities and awake Psychiatric A+Ox3, euthymic affect Results & Data <Sae Beauchamp DO - Last Filed: 10/02/18 07:10> Laboratory Results Laboratory Results - last 24 hr 09/30/18 08:02 Blood Type A Negative Antibody Screen POSITIVE A Antibody Identification Anti-D Medications Administered Docusate Sodium (Colace) 100 mg PO BID [facility] Stop: 10/30/18 20:59 Last Admin: 10/01/18 20:32 Dose: 100 mg Documented by: [id number] Admin: 10/01/18 08:08 Dose: 100 mg Documented by: [id number] Admin: 09/30/18 21:45 Dose: Not Given Documented by: [id number] Ibuprofen (Motrin) 600 mg PO Q4H PRN PRN Reason: Pain/KERN/Cramping/Fever Stop: 10/30/18 16:57 Last Admin: 10/02/18 02:01 Dose: 600 mg Documented by: [id number] Admin: 10/01/18 20:32 Dose: 600 mg Documented by: [id number] Admin: 10/01/18 16:28 Dose: 600 mg Documented by: [id number] Admin: 10/01/18 11:48 Dose: 600 mg Documented by: [id number] Admin: 10/01/18 08:08 Dose: 600 mg Documented by: [id number] Admin: 10/01/18 04:07 Dose: 600 mg Documented by: [id number] Admin: 10/01/18 00:07 Dose: 600 mg Documented by: [id number] Admin: 09/30/18 17:18 Dose: 600 mg Documented by: [id number] Prenat Multivit/[place]/Iron/Folic Ac ( Vitamin) 1 tab PO QAM [facility] Stop: 10/31/18 08:59 Last Admin: 10/01/18 08:08 Dose: 1 tab Documented by: [id number] Sertraline HCl (Zoloft) 75 mg PO DAILY [facility] Stop: 10/30/18 08:59 Last Admin: 10/01/18 06:34 Dose: 75 mg Documented by: [id number] Admin: 09/30/18 11:32 Dose: Not Given Documented by: [id number] <Keith Sánchez MD - Last Filed: 10/12/18 18:18> Co-Signing Physician Notes Patient evaluated and agree findings and plan
[2018-10-02] MEDS: DOCUSATE SODIUM 100 MG CAP PO SCH (08:44)
[2018-10-02] MEDS: PRENATAL VITAMIN 1 TAB PO SCH (08:45)
[2018-10-02] MEDS: SERTRALINE HCL 50 MG TABLET PO SCH (08:46)
== END 2018-10-02 11:13 | disposition home or self-care (01) | DRG 807 ==
LOC: 4S1 07:34 → 4S2 19:00
DX: Z3A.37 37 weeks gestation of pregnancy; F32.9 Major depressive disorder, single episode, unspecified; Z91.040 Latex allergy status; Z79.899 Other long term (current) drug therapy; Z91.048 Other nonmedicinal substance allergy status; O36.0930 Maternal care for other rhesus isoimmunization, third trimester, not applicable or unspecified; Z67.91 Unspecified blood type, Rh negative; O69.81X0 Labor and delivery complicated by cord around neck, without compression, not applicable or unspecified; O99.344 Other mental disorders complicating childbirth; Z37.0 Single live birth; O36.0130 Maternal care for anti-D [Rh] antibodies, third trimester, not applicable or unspecified